=== PATIENT | male | born 1970 | race African-American/Black ===

== ENCOUNTER → 2021-01-04 | Outpatient (CLI) | payer OTHER | LOC: CAT 11:52 | PROVIDERS: ATTEND Internal Medicine Cardiovascular Disease | DX: Z13.6 Encounter for screening for cardiovascular disorders (principal) ==

== ENCOUNTER → 2021-02-05 | Outpatient (CLI) | payer BC | LOC: SJCVCIMAG 08:15 | PROVIDERS: ATTEND Internal Medicine Cardiovascular Disease | DX: R94.31 Abnormal electrocardiogram [ECG] [EKG] (principal); R06.00 Dyspnea, unspecified ==